=== PATIENT | male | born 1965 | race Caucasian/White ===

== ENCOUNTER 2024-07-02 09:15 | Day surgery (SDC) | payer OTHER, SELFPAY ==
--- NOTE | 2024-07-02 | PATH_ITS ---
[facility] Accession Number: [id number] No. of containers..02 Tissue . 01 Material submitted: . PART A: colon - ASCENDING POLYP PART B: rectosigmoid junction - RECTOSIGMOID POLYP . 01 Diagnosis: Part A: ASCENDING POLYP: Colonic mucosa with benign lymphoid aggregate. No neoplasm identified. . Part B: RECTOSIGMOID POLYP: Tubular adenoma. STO 07/04/20241423 Local . 01 Electronically signed: . Silvano Gleason MD, Pathologist NPI- [id number] . 01 Gross description: . Part A: ASCENDING POLYP: Received in formalin is 1 fragment(s) of guerra, soft tissue measuring 0.5 x 0.3 x 0.2 cm submitted entirely in 1 cassette(s) . Part B: RECTOSIGMOID POLYP: Received in formalin is 1 fragment(s) of guerra, soft tissue measuring 0.3 x 0.3 x 0.2 cm submitted entirely in 1 cassette(s) /JESSICA 07/04/20241423 Local . 01 Pathologist provided ICD-10: D12.7, K63.89 . 01 CPT . 647081, 944143 Specimen Comment: A courtesy copy of this report has been sent to [phone] Performed at: [address] [facility] [address], [place], [place] [id number] MD Silvano Gleason MD Phone: [phone]
[2024-07-02 10:36] VITALS: BP 135/83; PULSE 82; RESP 18; TEMP 36.2; O2SAT 99
[2024-07-02] MEDS: LACTATED RINGERS 1,000 ML 42 ML IV (10:36)
--- NOTE | 2024-07-02 10:53 | P.HP_ITS ---
History of Present Illness History of Present Illness Date Patient Seen: 07/02/24 Time Patient Seen: 10:53 Chief complaint: Colonoscopy Narrative: 58-year-old male here for colon cancer screening. Last colonoscopy was 11 years ago. No history of polyps. No family history of colon cancer. [facility] Medical History Hypertension Surgical History Hx of inguinal hernia surgery Social History Smoking Status: Never smoker alcohol intake: current Meds Home Medications and Allergies Home Medications Medication Instructions Recorded Confirmed Type lisinopril 20 1 tab PO DAILY 07/02/24 07/02/24 History mg-hydrochlorothiazide 12.5 mg tablet Allergies Allergy/AdvReac Type Severity Reaction Status Date / Time No Known Drug Allergies Allergy Verified 07/02/24 10:18 Review of Systems Review of Systems ROS: Yes All systems reviewed with the patient and are negative except as othe rwise documented Exam Vital Signs (past 8 hours): - 07/02/24 10:36 Temperature 97.2 F L Pulse Rate 82 Respiratory Rate 18 Blood Pressure 135/83 Pulse Oximetry 99 Oxygen Delivery Method Room Air Oxygen Delivery Method Room Air Const General: cooperative HENMT Head: normal to inspection Eyes General: appearance normal, both eyes and all related structures Neck Neck: normal visual inspection Chest Chest: normal inspection of the chest Resp Effort & Inspection: normal respiratory effort Cardio Rate: regular rate GI Inspection: normal to inspection Skin General: no rashes or lesions noted Neuro General: patient alert and patient awake Extrem General: normal to inspection and no pedal edema Psych Appearance: grossly normal Assessment & Plan Assessment & Plan narrative: 58-year-old male indicated for colon cancer screening. Colonoscopy is pursued today. Time-Based Coding :: [TOTAL MINUTES] spent with patient and on the chart (including review of chart, obtaining history, exam, reviewing outside data, placing orders, documenting exam and treatment plan, and counseling patient) on [DATE].
--- NOTE | 2024-07-02 10:54 | PM.PREOP ---
Pre-operative Note Interval Note History & Physical reviewed/Exam performed by Physician: Yes Changes to H&P: No ASA Class (for procedural sedation): II
--- NOTE | 2024-07-02 12:18 | PM.OP.COLON ---
Operative Date/Time/Diagnoses Date of procedure: 07/02/24 Time of procedure: 12:19 Pre-op diagnosis: Colon cancer screening Post-op diagnosis: same Procedure & Clinicians Study performed: Colonoscopy with cold snare polypectomies Same procedure as scheduled: Yes Indications: Colon cancer screening Surgeon: Chava Yo Procedure Notes SCOAP/Timeout: Done Procedure in detail: After the risks and benefits were explained, written and verbal informed consent was obtained. The patient was brought into the procedure room and placed into the left lateral decubitus position. Please see anesthesia notes for sedation details. Digital rectal examination was accomplished. The scope was introduced into the patient and advanced under direct visualization to the cecum as identified by the appendiceal orifice and ileocecal valve. The scope was slowly withdrawn to carefully examine the mucosa for any defects or lesions. Comprehensive imaging was accomplished throughout the rectum including the dentate line. The colon was decompressed, the scope was then removed from the patient who tolerated the procedure well. Adult colonoscope Bowel prep adequate Scope withdrawal time: 15 minutes Sedation minutes: 20 Complications: none Impression: The patient had evidence of grade 2 internal hemorrhoids. He had fairly extensive diverticulosis in the sigmoid region. In the ascending colon there was a 4-5 mm sessile polyp removed with cold snare. In the rectosigmoid region there was another 4-5 mm sessile polyp removed with cold snare. No additional pathology was appreciated throughout. Endoscopic diagnosis 1. Grade 2 hemorrhoids 2. Diverticulosis 3. Colon polyps Post-procedure Plan for aftercare: 1. Await histology. 2. Repeat colonoscopy will likely be suggested for 7 years time. Disposition: PACU
[2024-07-02 12:20] VITALS: BP 122/76; PULSE 84; RESP 17; TEMP 36.1; O2SAT 94
[2024-07-02 12:26] VITALS: BP 107/70; PULSE 73; RESP 13; O2SAT 94
[2024-07-02 12:32] VITALS: BP 108/71; PULSE 64; RESP 12; TEMP 36.1; O2SAT 96
[2024-07-02 12:42] VITALS: BP 124/82; PULSE 64; RESP 14; O2SAT 97
== END 2024-07-02 12:52 | disposition home or self-care (01) ==
PROVIDERS: PCP Internal Medicine; Referring Provider Internal Medicine Gastroenterology; Visit Provider Internal Medicine Gastroenterology
PROC: 0DJD8ZZ Inspection of Lower Intestinal Tract, Via Natural or Artificial Opening Endoscopic (ICD-10-PCS; CPT 45378; principal; 2024-07-02 11:00)
DX: Z12.11 Encounter for screening for malignant neoplasm of colon (principal); K64.1 Second degree hemorrhoids; K57.30 Diverticulosis of large intestine without perforation or abscess without bleeding; D12.7 Benign neoplasm of rectosigmoid junction
CPT/HCPCS: 45385; J2704